=== PATIENT | female | born 1960 | race Caucasian/White ===

== ENCOUNTER → 2018-05-23 | Outpatient (CLI) | payer MEDICARE, OTHER ==
[~2018-05-23] MED LIST: ALPR1TAB7 PO; AML5T PO; ATEN-60 PO; AZAT50TA6 PO; BETH50TA PO; BUTACAP35 PO; ESOM40CA39 PO; FEXO-42 PO; FLUC200T50 PO; GABA600T PO; HYDR2TAB58 PO; LEVO175T33 PO; LISI-646 PO; METH-562 PO; MUPI2OIN2 EX; NITR50CA24 PO; OXY20CRT PO; OXY5T PO; PRE1T PO; PRE5T PO; PROBCAP4 OR; RIV20T PO
== END | disposition home or self-care (01) ==
LOC: Rad HDHVI 15:10
PROVIDERS: ATTEND Internal Medicine Cardiovascular Disease
DX: Z01.810 Encounter for preprocedural cardiovascular examination (principal); I08.1 Rheumatic disorders of both mitral and tricuspid valves; R07.89 Other chest pain
CPT/HCPCS: 93306

== ENCOUNTER → 2019-05-04 | Outpatient (CLI) | payer MEDICARE, OTHER ==
[~2019-05-04] VITALS: Ht 162.6 cm; Wt 47.6 kg
[~2019-05-04] MED LIST changes: +ADENOSINE 40 MG in GIVE UN-DILUTED 0 ML IV ONE; +ADENOSINE 90 MG/30 ML INJ IV ONE
== END | disposition home or self-care (01) ==
LOC: Rad HDHVI 13:14
PROVIDERS: ATTEND Internal Medicine Cardiovascular Disease
DX: I10 Essential (primary) hypertension (principal); F17.200 Nicotine dependence, unspecified, uncomplicated
CPT/HCPCS: 78452; 93005; 96374; 96375; A9500; J0153

== ENCOUNTER → 2019-11-22 | Outpatient (CLI) | payer MEDICARE, OTHER ==
[~2019-11-22] VITALS: Ht 30.5 cm; Wt 0.5 kg
[~2019-11-22] MED LIST changes: -ADENOSINE 40 MG in GIVE UN-DILUTED 0 ML IV ONE; -ADENOSINE 90 MG/30 ML INJ IV ONE; +KETOROLAC TROMETH 60MG/2ML VIAL IM ONE; +KETOROLAC TROMETH 60MG/2ML VIAL ONE
[2019-11-22 11:14] VITALS: BP 123/81
--- NOTE | 2019-11-22 11:14 | NUR ---
CHF PT ARRIVED TO THE CHF CLINIC FOR WEEKLY TORADOL IM PER MD ORDERS. A/OX4, AMBULATORY WITH WALKER. PT PAIN SCALE 9/10. PT HAS COLLAPSED SPINE AND IS AWAITING SPINE RECONSTRUCTION SURGERY AT [facility].
[2019-11-22 11:37] VITALS: BP 130/79
--- NOTE | 2019-11-22 11:37 | NUR ---
Discharge Instructions See e-MAR for any mediations given with this visit. Patient education given on disease process. Patient verbalized understanding. Previous labs reviewed. Patient discharged in stable condition with after care instructions and follow up appointment. WILL RETURN TO CLINIC ON 11/29/19 FOR PAIN EVAL AND TX. NOTE TORADOL IM ADMIN BY VOLODYMYR CHRISTIE IN [facility] LOT#[id number] EXP 07/19
== END | disposition home or self-care (01) ==
LOC: CHF HDHVI 11:14
PROVIDERS: ATTEND Internal Medicine Cardiovascular Disease
DX: G89.29 Other chronic pain (principal); M48.56XD Collapsed vertebra, not elsewhere classified, lumbar region, subsequent encounter for fracture with routine healing
CPT/HCPCS: 96372; G0463; J1885

== ENCOUNTER → 2019-11-29 | Outpatient (CLI) | payer MEDICARE, OTHER ==
[2019-11-29 14:05] VITALS: BP 128/75
[2019-11-29 14:33] VITALS: BP 144/62
== END | disposition home or self-care (01) ==
LOC: CHF HDHVI 13:59
PROVIDERS: ATTEND Internal Medicine Cardiovascular Disease
DX: R94.4 Abnormal results of kidney function studies (principal); G89.29 Other chronic pain
CPT/HCPCS: 36415; 82565; 84520; 96372; G0463; J1885

== ENCOUNTER → 2019-12-06 | Outpatient (CLI) | payer MEDICARE, OTHER ==
[2019-12-06 16:10] VITALS: BP 127/73
[2019-12-06 16:24] VITALS: BP 117/70
== END | disposition home or self-care (01) ==
LOC: CHF HDHVI 15:58
PROVIDERS: ATTEND Internal Medicine Cardiovascular Disease
DX: G89.29 Other chronic pain (principal); M48.56XD Collapsed vertebra, not elsewhere classified, lumbar region, subsequent encounter for fracture with routine healing
CPT/HCPCS: 96372; G0463; J1885

== ENCOUNTER → 2019-12-13 | Outpatient (CLI) | payer MEDICARE, OTHER ==
[~2019-12-13] VITALS: Ht 30.5 cm; Wt 0.5 kg
[2019-12-13 14:30] VITALS: BP 137/85
[2019-12-13 14:41] VITALS: BP 138/82
== END | disposition home or self-care (01) ==
LOC: CHF HDHVI 14:26
PROVIDERS: ATTEND Internal Medicine Cardiovascular Disease
DX: G89.29 Other chronic pain (principal); M48.56XD Collapsed vertebra, not elsewhere classified, lumbar region, subsequent encounter for fracture with routine healing
CPT/HCPCS: 96372; G0463; J1885

== ENCOUNTER → 2019-12-20 | Outpatient (CLI) | payer MEDICARE, OTHER ==
[2019-12-20 15:00] VITALS: BP 108/62
--- NOTE | 2019-12-20 15:00 | NUR ---
CLINIC PT ARRIVED TO THE CLINIC FOR WEEKLY EVAL AND TX. A/O X4, AMBULATORY WITH WALKER. PAIN 9/10 IN BACK DUE TO COLLAPSED PAIN WAITING ON BACK SURGERY.
[2019-12-20 15:19] VITALS: BP 105/68
--- NOTE | 2019-12-20 15:19 | NUR ---
Discharge Instructions See e-MAR for any mediations given with this visit. Patient education given on disease process. Patient verbalized understanding. Previous labs reviewed. Patient discharged in stable condition with after care instructions and follow up appointment. PT TO RETURN TO CLINIC IN 1 WEEK PER MD ORDERS. NOTE TORADOL IM R [place] ADMIN BY VOLODYMYR CHRISTIE LOT# [id number] EXP 07/19
== END | disposition home or self-care (01) ==
LOC: CHF HDHVI 14:58
PROVIDERS: ATTEND Internal Medicine Cardiovascular Disease
DX: G89.29 Other chronic pain (principal); M54.5 Low back pain
CPT/HCPCS: 96372; G0463; J1885

== ENCOUNTER → 2019-12-27 | Outpatient (CLI) | payer MEDICARE, OTHER ==
[2019-12-27 15:07] VITALS: BP 140/81
[2019-12-27 15:23] VITALS: BP 149/73
== END | disposition home or self-care (01) ==
LOC: CHF HDHVI 15:06
PROVIDERS: ATTEND Internal Medicine Cardiovascular Disease
DX: M54.5 Low back pain (principal); G89.29 Other chronic pain; M48.56XD Collapsed vertebra, not elsewhere classified, lumbar region, subsequent encounter for fracture with routine healing
CPT/HCPCS: 96372; G0463; J1885

== ENCOUNTER → 2020-01-03 | Outpatient (CLI) | payer MEDICARE, OTHER ==
[2020-01-03 14:50] VITALS: BP 144/78
--- NOTE | 2020-01-03 14:50 | NUR ---
CLINIC PT ARRIVED TO THE CHF CLINIC FOR WEEKLY EVAL AND TX PER MD ORDER. A/O X4, AMBULATORY WITH THE USE OF HOME WALKER. PT BACK PAIN 03/07 NON RADIATING. PT STILL AWAITING SPINE RECONSTRUCTION SURGERY BUT OF NOW NO DATE
[2020-01-03 15:01] VITALS: BP 132/85
--- NOTE | 2020-01-03 15:01 | NUR ---
Discharge Instructions See e-MAR for any mediations given with this visit. Patient education given on disease process. Patient verbalized understanding. Previous labs reviewed. Patient discharged in stable condition with after care instructions and follow up appointment. IN 1 WEEK NOTE TORADOL IM ADMIN BY VOLODYMYR CHRISTIE LOT# [id number] EXP 01/15 Glory DAHL
== END | disposition home or self-care (01) ==
LOC: CHF HDHVI 15:01
PROVIDERS: ATTEND Internal Medicine Cardiovascular Disease
DX: R53.83 Other fatigue (principal); G89.29 Other chronic pain
CPT/HCPCS: 96372; G0463; J1885

== ENCOUNTER → 2020-01-10 | Outpatient (CLI) | payer MEDICARE, OTHER ==
[2020-01-10 14:25] VITALS: BP 144/87
[2020-01-10 14:34] VITALS: BP 149/73
== END | disposition home or self-care (01) ==
LOC: CHF HDHVI 14:26
PROVIDERS: ATTEND Internal Medicine Cardiovascular Disease
DX: G89.29 Other chronic pain (principal); M54.5 Low back pain
CPT/HCPCS: 96372; G0463; J1885

== ENCOUNTER → 2020-01-18 | Outpatient (CLI) | payer MEDICARE, OTHER ==
[2020-01-18 14:25] VITALS: BP 123/69
[2020-01-18 14:37] VITALS: BP 118/72
== END | disposition home or self-care (01) ==
LOC: CHF HDHVI 14:20
PROVIDERS: ATTEND Internal Medicine Cardiovascular Disease
DX: G89.29 Other chronic pain (principal); M48.56XD Collapsed vertebra, not elsewhere classified, lumbar region, subsequent encounter for fracture with routine healing; M54.5 Low back pain
CPT/HCPCS: 96372; G0463; J1885

== ENCOUNTER → 2020-01-24 | Outpatient (CLI) | payer MEDICARE, OTHER ==
[2020-01-24 15:30] VITALS: BP 155/89
[2020-01-24 15:36] VITALS: BP 155/89
--- NOTE | 2020-01-24 15:36 | NUR ---
CHF CLINIC Discharge Instructions See e-MAR for any mediations given with this visit. Patient education given on disease process. Patient verbalized understanding. Previous labs reviewed. Patient discharged in stable condition with after care instructions and follow up appointment. NOTE TORADOL IM L GLUTE ADMIN BY BI CHRISTIE.
== END | disposition home or self-care (01) ==
LOC: CHF HDHVI 15:36
PROVIDERS: ATTEND Internal Medicine Cardiovascular Disease
DX: M48.56XD Collapsed vertebra, not elsewhere classified, lumbar region, subsequent encounter for fracture with routine healing (principal); G89.29 Other chronic pain; M54.5 Low back pain; R53.83 Other fatigue
CPT/HCPCS: 96372; G0463; J1885

== ENCOUNTER → 2020-01-31 | Outpatient (CLI) | payer MEDICARE, OTHER ==
[~2020-01-31] VITALS: Ht 30.5 cm; Wt 0.5 kg
[2020-01-31 14:53] VITALS: BP 123/72
--- NOTE | 2020-01-31 14:53 | NUR ---
CLINIC PT ARRIVED TO THE CHF CLINIC FOR WEEKLY EVAL AND TX. PER MD ORDERS. A/OX4, AMBULATORY WITH WALKER. C/O PAIN 03/07. BREATHING IS EVEN AND UNLABORED.
[2020-01-31 15:27] VITALS: BP 107/70
--- NOTE | 2020-01-31 15:27 | NUR ---
Discharge Instructions See e-MAR for any mediations given with this visit. Patient education given on disease process. Patient verbalized understanding. Previous labs reviewed. Patient discharged in stable condition with after care instructions and follow up appointment 1 WEEK. NOTE TORADOL IM ADMIN BY VOLODYMYR DAHL
== END | disposition home or self-care (01) ==
LOC: CHF HDHVI 15:04
PROVIDERS: ATTEND Internal Medicine Cardiovascular Disease
DX: G89.29 Other chronic pain (principal); M48.56XD Collapsed vertebra, not elsewhere classified, lumbar region, subsequent encounter for fracture with routine healing; M54.5 Low back pain
CPT/HCPCS: 96372; G0463; J1885

== ENCOUNTER → 2020-02-07 | Outpatient (CLI) | payer MEDICARE, OTHER ==
[~2020-02-07] VITALS: Ht 30.5 cm; Wt 0.5 kg
[2020-02-07 14:33] VITALS: BP 142/85
[2020-02-07 14:44] VITALS: BP 133/80
== END | disposition home or self-care (01) ==
LOC: CHF HDHVI 14:36
PROVIDERS: ATTEND Internal Medicine Cardiovascular Disease
DX: G89.29 Other chronic pain (principal); M54.9 Dorsalgia, unspecified
CPT/HCPCS: 96372; G0463; J1885

== ENCOUNTER → 2020-02-14 | Outpatient (CLI) | payer MEDICARE, OTHER ==
[2020-02-14 15:20] VITALS: BP 154/84
--- NOTE | 2020-02-14 15:20 | NUR ---
CLINIC PT ARRIVED TO THE CHF CLINIC FOR WEEKLY PAIN EVAL AND TX. A/OX4, AMBULATORY WITH WALKER. PT HAS A COLLAPSED SPINE AND IS AWAITING SURGERY. PAIN 9/10. BREATHING IS EVEN AND UNLABORED
[2020-02-14 15:29] VITALS: BP 141/83
--- NOTE | 2020-02-14 15:29 | NUR ---
Discharge Instructions See e-MAR for any mediations given with this visit. Patient education given on disease process. Patient verbalized understanding. Previous labs reviewed. Patient discharged in stable condition with after care instructions and follow up appointment IN 1 WEEK. NOTE TORADOL IM ADMIN BY VOLODYMYR DAHL LOT# [id number] EXP 07/19
== END | disposition home or self-care (01) ==
LOC: CHF HDHVI 15:22
PROVIDERS: ATTEND Internal Medicine Cardiovascular Disease
DX: M54.5 Low back pain (principal); G89.29 Other chronic pain; M48.56XD Collapsed vertebra, not elsewhere classified, lumbar region, subsequent encounter for fracture with routine healing
CPT/HCPCS: 96372; G0463; J1885

== ENCOUNTER → 2020-02-28 | Outpatient (CLI) | payer MEDICARE, OTHER ==
[~2020-02-28] VITALS: Ht 30.5 cm; Wt 0.5 kg
[2020-02-28 14:59] VITALS: BP 132/85
[2020-02-28 15:15] VITALS: BP 131/75
== END | disposition home or self-care (01) ==
LOC: CHF HDHVI 15:05
PROVIDERS: ATTEND Internal Medicine Cardiovascular Disease
DX: G89.29 Other chronic pain (principal); M48.56XD Collapsed vertebra, not elsewhere classified, lumbar region, subsequent encounter for fracture with routine healing; M54.5 Low back pain
CPT/HCPCS: 96372; G0463; J1885

== ENCOUNTER → 2020-03-06 | Outpatient (CLI) | payer MEDICARE, OTHER ==
[2020-03-06 13:56] VITALS: BP 135/67
--- NOTE | 2020-03-06 13:56 | NUR ---
CLINIC PT ARRIVED TO THE CHF CLINIC FOR SCHEDULED WEEKLY PAIN EVAL. A/OX4, AMBULATORY WITH WALKER. PT C/O PAIN 03/07. BREATHING IS EVEN AND UNLABORED.
[2020-03-06 14:10] VITALS: BP 119/79
--- NOTE | 2020-03-06 14:10 | NUR ---
Discharge Instructions See e-MAR for any mediations given with this visit. Patient education given on disease process. Patient verbalized understanding. Previous labs reviewed. Patient discharged in stable condition with after care instructions and follow up appointment IN 1 WEEK. NOTE TORADOL IM ADMIN BY VOLODYMYR DAHL LOT#[id number] EXP 12/17
== END | disposition home or self-care (01) ==
LOC: CHF HDHVI 14:06
PROVIDERS: ATTEND Internal Medicine Cardiovascular Disease
DX: M48.56XD Collapsed vertebra, not elsewhere classified, lumbar region, subsequent encounter for fracture with routine healing (principal); M54.5 Low back pain; G89.29 Other chronic pain; R53.83 Other fatigue
CPT/HCPCS: 96372; G0463; J1885

== ENCOUNTER → 2020-03-21 | Outpatient (CLI) | payer MEDICARE, OTHER ==
[~2020-03-21] VITALS: Ht 30.5 cm; Wt 0.5 kg
[2020-03-21 13:46] VITALS: BP 121/74
--- NOTE | 2020-03-21 13:46 | NUR ---
CLINIC PT ARRIVED TO THE CHF CLINIC FOR WEEKLY PAIN EVAL AND TX. A/OX4, AMBULATORY WITH WALKER. PAIN 9/, BREATHING IS EVEN AND UNLABORED
[2020-03-21 13:52] VITALS: BP 129/77
--- NOTE | 2020-03-21 13:52 | NUR ---
Discharge Instructions See e-MAR for any mediations given with this visit. Patient education given on disease process. Patient verbalized understanding. Previous labs reviewed. Patient discharged in stable condition with after care instructions and follow up appointment IN 1 WEEK. NOTE TORADOL IM ADMIN BY VOLODYMYR DAHL LOT#[id number] EXP 12/17
== END | disposition home or self-care (01) ==
LOC: CHF HDHVI 13:47
PROVIDERS: ATTEND Internal Medicine Cardiovascular Disease
DX: G89.29 Other chronic pain (principal); M48.56XD Collapsed vertebra, not elsewhere classified, lumbar region, subsequent encounter for fracture with routine healing; M54.5 Low back pain
CPT/HCPCS: 96372; G0463; J1885

== ENCOUNTER → 2020-03-28 | Outpatient (CLI) | payer MEDICARE, OTHER ==
[2020-03-28 13:30] VITALS: BP 130/82
--- NOTE | 2020-03-28 13:30 | NUR ---
CLINIC PT ARRIVED TO THE CHF CLINIC FOR WEEKLY SCHEDULED PAIN EVAL AND TX. A/OX4, AMBULATORY WITH A WALKER. PAIN 03/07. PT STATED THERE IS A POSSIBILITY OF SURGERY TO REPAIR SPINE ON MAY 07, 2020. BREATHING IS EVEN AND UNLABORED.
[2020-03-28 13:45] VITALS: BP 130/78
--- NOTE | 2020-03-28 13:45 | NUR ---
Discharge Instructions See e-MAR for any mediations given with this visit. Patient education given on disease process. Patient verbalized understanding. Previous labs reviewed. Patient discharged in stable condition with after care instructions and follow up appointment IN 1 WEEK. NOTE TORADOL IM ADMIN BY VOLODYMYR DAHL LOT#[id number] EXP 01/15
== END | disposition home or self-care (01) ==
LOC: CHF HDHVI 13:39
PROVIDERS: ATTEND Internal Medicine Cardiovascular Disease
DX: G89.29 Other chronic pain (principal); M48.56XD Collapsed vertebra, not elsewhere classified, lumbar region, subsequent encounter for fracture with routine healing; M54.5 Low back pain
CPT/HCPCS: 96372; G0463; J1885

== ENCOUNTER → 2020-04-04 | Outpatient (CLI) | payer MEDICARE, OTHER ==
[2020-04-04 13:50] VITALS: BP 114/77
--- NOTE | 2020-04-04 13:50 | NUR ---
CLINIC PT ARRIVED TO THE CHF CLINIC FOR WEEKLY PAIN EVAL. A/OX4, AMBULATORY WITH WALKER, BREATHING IS EVEN AND UNLABORED. PAIN 02/04.
[2020-04-04 14:02] VITALS: BP 129/78
--- NOTE | 2020-04-04 14:02 | NUR ---
Discharge Instructions See e-MAR for any mediations given with this visit. Patient education given on disease process. Patient verbalized understanding. Previous labs reviewed. Patient discharged in stable condition with after care instructions and follow up appointment ON WED. NOTE TORADOL IM ADMIN BY DANNI DAHL LOT#[id number] EXP 12/17
== END | disposition home or self-care (01) ==
LOC: CHF HDHVI 13:51
PROVIDERS: ATTEND Internal Medicine Cardiovascular Disease
DX: M48.56XD Collapsed vertebra, not elsewhere classified, lumbar region, subsequent encounter for fracture with routine healing (principal); G89.29 Other chronic pain; R53.83 Other fatigue
CPT/HCPCS: 96372; G0463; J1885

== ENCOUNTER → 2020-04-10 | Outpatient (CLI) | payer MEDICARE, OTHER ==
[2020-04-10 15:01] VITALS: BP 163/92
--- NOTE | 2020-04-10 15:01 | NUR ---
PT ARRIVED TO CHF CLINIC PT ARRIVED TO CHF CLINIC FOR CHRONIC PAIN EVAL AND TREATMENT. PATIENT IS ALERT AND AWAKE WITH EVEN AND UNLABORED RESPIRATIONS. NO S/S OF SOB/DISTRESS NOTED. PT C/O PAIN 03/07 IN BACK. WILL CARRY OUT MD ORDERS.
[2020-04-10 15:13] VITALS: BP 145/90
--- NOTE | 2020-04-10 15:13 | NUR ---
CHF CLINIC Discharge Instructions See e-MAR for any mediations given with this visit. Patient education given on disease process. Patient verbalized understanding. Previous labs reviewed. Patient discharged in stable condition with after care instructions and follow up appointment. NOTES TORADOL IM RIGHT GLUT ADMIN BY DANNI KHANNA
== END | disposition home or self-care (01) ==
LOC: CHF HDHVI 15:26
PROVIDERS: ATTEND Internal Medicine Cardiovascular Disease
DX: G89.29 Other chronic pain (principal); M48.56XD Collapsed vertebra, not elsewhere classified, lumbar region, subsequent encounter for fracture with routine healing; R53.83 Other fatigue; M54.5 Low back pain
CPT/HCPCS: 96372; G0463; J1885

== ENCOUNTER → 2020-04-18 | Outpatient (CLI) | payer MEDICARE, OTHER ==
[~2020-04-18] VITALS: Ht 30.5 cm; Wt 0.5 kg
[2020-04-18 15:13] VITALS: BP 139/84
--- NOTE | 2020-04-18 15:13 | NUR ---
CLINIC PT ARRIVED TO THE CHF CLINIC FOR SCHEDULED WEEKLY PAIN EVAL AND TX, A/OX4, AMBULATORY WITH WALKER, PAIN 03/07. BREATHING IS EVEN AND UNLABORED.
[2020-04-18 15:36] VITALS: BP 134/90
--- NOTE | 2020-04-18 15:36 | NUR ---
Discharge Instructions See e-MAR for any mediations given with this visit. Patient education given on disease process. Patient verbalized understanding. Previous labs reviewed. Patient discharged in stable condition with after care instructions and follow up appointment WED @ 230 NOTE TORADOL IM ADMIN BY VOLODYMYR DAHL LOT#[id number] EXP 12/17
== END | disposition home or self-care (01) ==
LOC: CHF HDHVI 15:15
PROVIDERS: ATTEND Internal Medicine Cardiovascular Disease
DX: G89.29 Other chronic pain (principal); S32.009D Unspecified fracture of unspecified lumbar vertebra, subsequent encounter for fracture with routine healing; M54.5 Low back pain
CPT/HCPCS: 96372; G0463; J1885

== ENCOUNTER → 2020-04-23 | Outpatient (CLI) | payer MEDICARE, OTHER ==
[~2020-04-23] VITALS: Ht 30.5 cm; Wt 0.5 kg
[2020-04-23 14:50] VITALS: BP 153/95
--- NOTE | 2020-04-23 14:50 | NUR ---
CLINIC PT ARRIVED TO THE CHF CLINIC FOR PAIN EVAL AND TX. A/OX4, AMBULATORY WITH WALKER, BREATHING IS EVEN AND UNLABORED. PAIN 03/07.
[2020-04-23 15:05] VITALS: BP 135/83
--- NOTE | 2020-04-23 15:05 | NUR ---
Discharge Instructions See e-MAR for any mediations given with this visit. Patient education given on disease process. Patient verbalized understanding. Previous labs reviewed. Patient discharged in stable condition with after care instructions and follow up appointment IN 1 WEEK. NOTE TORADOL IM ADMIN BY VOLODYMYR DAHL LOT#[id number] EXP 12/17
== END | disposition home or self-care (01) ==
LOC: CHF HDHVI 14:55
PROVIDERS: ATTEND Internal Medicine Cardiovascular Disease
DX: G89.29 Other chronic pain (principal); M48.56XD Collapsed vertebra, not elsewhere classified, lumbar region, subsequent encounter for fracture with routine healing; M54.5 Low back pain
CPT/HCPCS: 96372; G0463; J1885

== ENCOUNTER → 2020-05-01 | Outpatient (CLI) | payer MEDICARE, OTHER ==
[~2020-05-01] VITALS: Ht 154.9 cm; Wt 46.7 kg
[2020-05-01 15:20] VITALS: BP 151/90
--- NOTE | 2020-05-01 15:20 | NUR ---
CLINIC PT ARRIVED TO THE CLINIC FOR SCHEDULED PAIN EVAL AND TX. A/OX4, AMBULATORY WITH WALKER, BREATHING IS EVEN AND UNLABORED. PAIN REPORTED 03/07.
[2020-05-01 15:28] VITALS: BP 147/91
--- NOTE | 2020-05-01 15:28 | NUR ---
Discharge Instructions See e-MAR for any mediations given with this visit. Patient education given on disease process. Patient verbalized understanding. Previous labs reviewed. Patient discharged in stable condition with after care instructions and follow up appointment IN 1 WEEK. NOTE TORADOL IM ADMIN BY VOLODYMYR DAHL LOT#[id number] EXP 12/17
== END | disposition home or self-care (01) ==
LOC: CHF HDHVI 15:25
PROVIDERS: ATTEND Internal Medicine Cardiovascular Disease
DX: G89.29 Other chronic pain (principal); M48.56XD Collapsed vertebra, not elsewhere classified, lumbar region, subsequent encounter for fracture with routine healing; M54.5 Low back pain; R53.83 Other fatigue
CPT/HCPCS: 96372; G0463; J1885

== ENCOUNTER → 2020-05-07 | Outpatient (CLI) | payer MEDICARE, OTHER ==
[2020-05-07 14:49] VITALS: BP 127/63
[2020-05-07 14:59] VITALS: BP 128/62
== END | disposition home or self-care (01) ==
LOC: CHF HDHVI 15:05
PROVIDERS: ATTEND Internal Medicine Cardiovascular Disease
DX: G89.29 Other chronic pain (principal); M48.56XD Collapsed vertebra, not elsewhere classified, lumbar region, subsequent encounter for fracture with routine healing
CPT/HCPCS: 96372; G0463; J1885

== ENCOUNTER → 2020-05-21 | Outpatient (CLI) | payer MEDICARE, OTHER ==
[2020-05-21 15:31] VITALS: BP 134/68
--- NOTE | 2020-05-21 15:31 | NUR ---
CLINIC PT ARRIVED TO THE CLINIC FOR SCHEDULED PAIN EVAL AND TX, A/OX4, AMBULATORY WITH WALKER, BREATHING IS EVEN AND UNLABORED. PT C/O GENERALIZED PAIN 03/07
[2020-05-21 15:47] VITALS: BP 102/65
--- NOTE | 2020-05-21 15:47 | NUR ---
Discharge Instructions See e-MAR for any mediations given with this visit. Patient education given on disease process. Patient verbalized understanding. Previous labs reviewed. Patient discharged in stable condition with after care instructions and follow up appointment IN 1 WEEK. NOTE TORADOL IM ADMIN BY VOLODYMYR DAHL LOT#[id number] EXP 01/15
== END | disposition home or self-care (01) ==
LOC: CHF HDHVI 15:40
PROVIDERS: ATTEND Internal Medicine Cardiovascular Disease
DX: G89.29 Other chronic pain (principal); M48.56XD Collapsed vertebra, not elsewhere classified, lumbar region, subsequent encounter for fracture with routine healing; M54.5 Low back pain; R53.83 Other fatigue
CPT/HCPCS: 96372; G0463; J1885

== ENCOUNTER → 2020-06-05 | Outpatient (CLI) | payer MEDICARE, OTHER ==
[~2020-06-05] VITALS: Ht 30.5 cm; Wt 0.5 kg
[2020-06-05 15:21] VITALS: BP 153/76
--- NOTE | 2020-06-05 15:21 | NUR ---
CLINIC PT ARRIVED TO THE CHF CLINIC FOR SCHEDULED PAIN EVAL AND TX, A/OX4, AMBULATORY WITH WALKER, BREATHING IS EVEN AND UNLABORED. PT C/O PAIN 03/07
[2020-06-05 15:48] VITALS: BP 153/78
--- NOTE | 2020-06-05 15:48 | NUR ---
Discharge Instructions See e-MAR for any mediations given with this visit. Patient education given on disease process. Patient verbalized understanding. Previous labs reviewed. Patient discharged in stable condition with after care instructions and follow up appointment IN 1 WEEK. NOTE TORADOL IM ADMIN BY VOLODYMYR DAHL LOT# [id number] EXP 02/16
== END | disposition home or self-care (01) ==
LOC: CHF HDHVI 15:36
PROVIDERS: ATTEND Internal Medicine Cardiovascular Disease
DX: M48.56XD Collapsed vertebra, not elsewhere classified, lumbar region, subsequent encounter for fracture with routine healing (principal); G89.29 Other chronic pain; M54.5 Low back pain; R53.83 Other fatigue
CPT/HCPCS: 96372; G0463; J1885

== ENCOUNTER → 2020-06-12 | Outpatient (CLI) | payer MEDICARE, OTHER ==
[2020-06-12 15:27] VITALS: BP 144/84
[2020-06-12 15:43] VITALS: BP 146/86
== END | disposition home or self-care (01) ==
LOC: CHF HDHVI 15:37
PROVIDERS: ATTEND Internal Medicine Cardiovascular Disease
DX: G89.29 Other chronic pain (principal); M54.5 Low back pain; R53.83 Other fatigue; M48.56XD Collapsed vertebra, not elsewhere classified, lumbar region, subsequent encounter for fracture with routine healing
CPT/HCPCS: 96372; G0463; J1885

== ENCOUNTER → 2020-06-25 | Outpatient (CLI) | payer MEDICARE, OTHER ==
[2020-06-25 15:15] VITALS: BP 105/71
[2020-06-25 15:50] VITALS: BP 120/73
== END | disposition home or self-care (01) ==
LOC: CHF HDHVI 15:34
PROVIDERS: ATTEND Internal Medicine Cardiovascular Disease
DX: G89.29 Other chronic pain (principal); M48.56XD Collapsed vertebra, not elsewhere classified, lumbar region, subsequent encounter for fracture with routine healing; R53.83 Other fatigue; M54.5 Low back pain
CPT/HCPCS: 96372; G0463; J1885

== ENCOUNTER → 2020-07-03 | Outpatient (CLI) | payer MEDICARE, OTHER ==
[~2020-07-03] VITALS: Ht 30.5 cm; Wt 0.5 kg
[~2020-07-03] MED LIST changes: +LEVO175T2 PO; -LEVO175T33 PO; -LISI-646 PO; +LISI20TA28 PO
[2020-07-03 15:55] VITALS: BP 128/59
[2020-07-03 16:05] VITALS: BP 128/72
== END | disposition home or self-care (01) ==
LOC: CHF HDHVI 15:57
PROVIDERS: ATTEND Internal Medicine Cardiovascular Disease
DX: G89.29 Other chronic pain (principal); M48.56XD Collapsed vertebra, not elsewhere classified, lumbar region, subsequent encounter for fracture with routine healing; M54.5 Low back pain; R53.83 Other fatigue
CPT/HCPCS: 96372; G0463; J1885

== ENCOUNTER → 2020-07-10 | Outpatient (CLI) | payer MEDICARE, OTHER ==
[~2020-07-10] MED LIST changes: -LEVO175T2 PO; +LEVO175T33 PO; +LISI-646 PO; -LISI20TA28 PO
[2020-07-10 14:38] VITALS: BP 122/89
[2020-07-10 14:49] VITALS: BP 124/93
== END | disposition home or self-care (01) ==
LOC: CHF HDHVI 14:41
PROVIDERS: ATTEND Internal Medicine Cardiovascular Disease
DX: G89.29 Other chronic pain (principal); R53.83 Other fatigue; M48.56XD Collapsed vertebra, not elsewhere classified, lumbar region, subsequent encounter for fracture with routine healing; M54.5 Low back pain
CPT/HCPCS: 96372; G0463; J1885

== ENCOUNTER → 2020-07-17 | Outpatient (CLI) | payer MEDICARE, OTHER ==
[~2020-07-17] VITALS: Ht 30.5 cm; Wt 0.5 kg
[~2020-07-17] MED LIST changes: +LEVO175T2 PO; -LEVO175T33 PO
[2020-07-17 15:32] VITALS: BP 149/83
[2020-07-17 15:57] VITALS: BP 133/82
== END | disposition home or self-care (01) ==
LOC: CHF HDHVI 15:27
PROVIDERS: ATTEND Internal Medicine Cardiovascular Disease
DX: M48.56XD Collapsed vertebra, not elsewhere classified, lumbar region, subsequent encounter for fracture with routine healing (principal); G89.29 Other chronic pain; R53.83 Other fatigue
CPT/HCPCS: 96372; G0463; J1885

== ENCOUNTER → 2020-07-24 | Outpatient (CLI) | payer MEDICARE, OTHER ==
[2020-07-24 15:03] VITALS: BP 141/93
[2020-07-24 15:19] VITALS: BP 153/79
== END | disposition home or self-care (01) ==
LOC: CHF HDHVI 15:27
PROVIDERS: ATTEND Internal Medicine Cardiovascular Disease
DX: M48.56XD Collapsed vertebra, not elsewhere classified, lumbar region, subsequent encounter for fracture with routine healing (principal); G89.29 Other chronic pain; R53.83 Other fatigue; M54.5 Low back pain
CPT/HCPCS: 96372; G0463; J1885

== ENCOUNTER → 2020-08-01 | Outpatient (CLI) | payer MEDICARE, OTHER ==
[2020-08-01 15:48] VITALS: BP 150/87
[2020-08-01 16:15] VITALS: BP 153/88
== END | disposition home or self-care (01) ==
LOC: CHF HDHVI 15:57
PROVIDERS: ATTEND Internal Medicine Cardiovascular Disease
DX: G89.29 Other chronic pain (principal); M54.5 Low back pain; R53.83 Other fatigue; M48.56XD Collapsed vertebra, not elsewhere classified, lumbar region, subsequent encounter for fracture with routine healing
CPT/HCPCS: 96372; G0463; J1885

== ENCOUNTER → 2020-08-08 | Outpatient (CLI) | payer MEDICARE, OTHER ==
[2020-08-08 14:48] VITALS: BP 148/77
[2020-08-08 15:00] VITALS: BP 146/72
== END | disposition home or self-care (01) ==
LOC: CHF HDHVI 14:54
PROVIDERS: ATTEND Internal Medicine Cardiovascular Disease
DX: G89.29 Other chronic pain (principal); M48.56XD Collapsed vertebra, not elsewhere classified, lumbar region, subsequent encounter for fracture with routine healing
CPT/HCPCS: 96372; G0463; J1885

== ENCOUNTER → 2020-08-15 | Outpatient (CLI) | payer MEDICARE, OTHER ==
[2020-08-15 15:14] VITALS: BP 145/87
[2020-08-15 15:30] VITALS: BP 153/86
== END | disposition home or self-care (01) ==
LOC: CHF HDHVI 15:27
PROVIDERS: ATTEND Internal Medicine Cardiovascular Disease
DX: G89.29 Other chronic pain (principal); M48.56XD Collapsed vertebra, not elsewhere classified, lumbar region, subsequent encounter for fracture with routine healing
CPT/HCPCS: 96372; G0463; J1885

== ENCOUNTER → 2020-08-29 | Outpatient (CLI) | payer MEDICARE, OTHER ==
[~2020-08-29] VITALS: Ht 30.5 cm; Wt 0.5 kg
[2020-08-29 15:18] VITALS: BP 135/87
[2020-08-29 15:33] VITALS: BP 141/87
== END | disposition home or self-care (01) ==
LOC: CHF HDHVI 15:24
PROVIDERS: ATTEND Internal Medicine Cardiovascular Disease
DX: M48.56XD Collapsed vertebra, not elsewhere classified, lumbar region, subsequent encounter for fracture with routine healing (principal); G89.29 Other chronic pain; M54.5 Low back pain; I50.9 Heart failure, unspecified; R53.83 Other fatigue
CPT/HCPCS: 96372; G0463; J1885

== ENCOUNTER → 2020-09-12 | Outpatient (CLI) | payer MEDICARE, OTHER ==
[2020-09-12 15:29] VITALS: BP 153/94
[2020-09-12 16:01] VITALS: BP 150/93
== END | disposition home or self-care (01) ==
LOC: CHF HDHVI 15:28
PROVIDERS: ATTEND Internal Medicine Cardiovascular Disease
DX: G89.29 Other chronic pain (principal); I50.9 Heart failure, unspecified; M48.56XD Collapsed vertebra, not elsewhere classified, lumbar region, subsequent encounter for fracture with routine healing
CPT/HCPCS: 96372; G0463; J1885

== ENCOUNTER → 2020-09-26 | Outpatient (CLI) | payer MEDICARE, OTHER ==
[2020-09-26 15:06] VITALS: BP 160/91
[2020-09-26 15:14] VITALS: BP 157/90
== END | disposition home or self-care (01) ==
LOC: CHF HDHVI 15:06
PROVIDERS: ATTEND Internal Medicine Cardiovascular Disease
DX: M48.56XD Collapsed vertebra, not elsewhere classified, lumbar region, subsequent encounter for fracture with routine healing (principal); G89.29 Other chronic pain; M54.5 Low back pain; I50.9 Heart failure, unspecified; M54.6 Pain in thoracic spine; R53.83 Other fatigue
CPT/HCPCS: 96372; G0463; J1885

== ENCOUNTER → 2020-10-03 | Outpatient (CLI) | payer MEDICARE, OTHER ==
[~2020-10-03] VITALS: Ht 30.5 cm; Wt 0.5 kg
[2020-10-03 14:34] VITALS: BP 124/80
[2020-10-03 14:48] VITALS: BP 114/75
== END | disposition home or self-care (01) ==
LOC: CHF HDHVI 14:31
PROVIDERS: ATTEND Internal Medicine Cardiovascular Disease
DX: M48.56XD Collapsed vertebra, not elsewhere classified, lumbar region, subsequent encounter for fracture with routine healing (principal); G89.29 Other chronic pain; M54.5 Low back pain; R53.83 Other fatigue; I50.9 Heart failure, unspecified
CPT/HCPCS: 96372; G0463; J1885

== ENCOUNTER → 2020-10-10 | Outpatient (CLI) | payer MEDICARE, OTHER ==
[2020-10-10 15:20] VITALS: BP 145/90
[2020-10-10 15:38] VITALS: BP 130/85
== END | disposition home or self-care (01) ==
LOC: CHF HDHVI 15:31
PROVIDERS: ATTEND Internal Medicine Cardiovascular Disease
DX: G89.29 Other chronic pain (principal); M48.56XD Collapsed vertebra, not elsewhere classified, lumbar region, subsequent encounter for fracture with routine healing; I50.9 Heart failure, unspecified
CPT/HCPCS: 96372; G0463; J1885

== ENCOUNTER → 2020-10-17 | Outpatient (CLI) | payer MEDICARE, OTHER ==
[~2020-10-17] VITALS: Ht 30.5 cm; Wt 0.5 kg
[2020-10-17 15:07] VITALS: BP 143/88
[2020-10-17 15:18] VITALS: BP 136/89
== END | disposition home or self-care (01) ==
LOC: CHF HDHVI 15:06
PROVIDERS: ATTEND Internal Medicine Cardiovascular Disease
DX: G89.29 Other chronic pain (principal); M48.56XD Collapsed vertebra, not elsewhere classified, lumbar region, subsequent encounter for fracture with routine healing; I50.9 Heart failure, unspecified
CPT/HCPCS: 96372; G0463; J1885

== ENCOUNTER → 2020-10-24 | Outpatient (CLI) | payer MEDICARE, OTHER ==
[~2020-10-24] MED LIST changes: -LISI-646 PO; +LISI20TA28 PO
[2020-10-24 13:42] VITALS: BP 123/70
[2020-10-24 13:51] VITALS: BP 106/73
== END | disposition home or self-care (01) ==
LOC: CHF HDHVI 13:40
PROVIDERS: ATTEND Internal Medicine Cardiovascular Disease
DX: G89.29 Other chronic pain (principal); M48.56XD Collapsed vertebra, not elsewhere classified, lumbar region, subsequent encounter for fracture with routine healing; I50.9 Heart failure, unspecified; R53.83 Other fatigue
CPT/HCPCS: 96372; G0463; J1885

== ENCOUNTER → 2020-10-31 | Outpatient (CLI) | payer MEDICARE, OTHER ==
[2020-10-31 12:56] VITALS: BP 132/87
[2020-10-31 13:04] VITALS: BP 133/88
== END | disposition home or self-care (01) ==
LOC: CHF HDHVI 13:03
PROVIDERS: ATTEND Internal Medicine Cardiovascular Disease
DX: G89.29 Other chronic pain (principal); M48.56XD Collapsed vertebra, not elsewhere classified, lumbar region, subsequent encounter for fracture with routine healing; I50.9 Heart failure, unspecified; R53.83 Other fatigue
CPT/HCPCS: 96372; G0463; J1885

== ENCOUNTER → 2020-11-07 | Outpatient (CLI) | payer MEDICARE, OTHER ==
[~2020-11-07] VITALS: Ht 30.5 cm; Wt 0.5 kg
[2020-11-07 13:53] VITALS: BP 161/88
[2020-11-07 14:06] VITALS: BP 151/76
== END | disposition home or self-care (01) ==
LOC: CHF HDHVI 13:54
PROVIDERS: ATTEND Internal Medicine Cardiovascular Disease
DX: M48.56XD Collapsed vertebra, not elsewhere classified, lumbar region, subsequent encounter for fracture with routine healing (principal); G89.29 Other chronic pain; R53.83 Other fatigue; I50.9 Heart failure, unspecified
CPT/HCPCS: 96372; G0463; J1885

== ENCOUNTER → 2020-11-15 | Outpatient (CLI) | payer MEDICARE, OTHER ==
[2020-11-15 12:33] VITALS: BP 164/90
[2020-11-15 12:45] VITALS: BP 170/96
== END | disposition home or self-care (01) ==
LOC: CHF HDHVI 12:34
PROVIDERS: ATTEND Internal Medicine Cardiovascular Disease
DX: M48.56XD Collapsed vertebra, not elsewhere classified, lumbar region, subsequent encounter for fracture with routine healing (principal); G89.29 Other chronic pain; R53.83 Other fatigue; I50.9 Heart failure, unspecified
CPT/HCPCS: 96372; G0463; J1885

== ENCOUNTER → 2020-11-28 | Outpatient (CLI) | payer MEDICARE, OTHER ==
[2020-11-28 14:14] VITALS: BP 156/83
[2020-11-28 14:22] VITALS: BP 148/87
== END | disposition home or self-care (01) ==
LOC: CHF HDHVI 14:11
PROVIDERS: ATTEND Internal Medicine Cardiovascular Disease
DX: M48.56XD Collapsed vertebra, not elsewhere classified, lumbar region, subsequent encounter for fracture with routine healing (principal); G89.29 Other chronic pain; I50.9 Heart failure, unspecified; R53.83 Other fatigue
CPT/HCPCS: 96372; G0463; J1885

== ENCOUNTER → 2020-12-26 | Outpatient (CLI) | payer MEDICARE, OTHER ==
[~2020-12-26] VITALS: Ht 30.5 cm; Wt 0.5 kg
[2020-12-26 13:50] VITALS: BP 165/84
[2020-12-26 13:57] VITALS: BP 136/91
== END | disposition home or self-care (01) ==
LOC: CHF HDHVI 13:49
PROVIDERS: ATTEND Internal Medicine Cardiovascular Disease
DX: G89.29 Other chronic pain (principal); M48.56XD Collapsed vertebra, not elsewhere classified, lumbar region, subsequent encounter for fracture with routine healing; I50.9 Heart failure, unspecified; R53.83 Other fatigue
CPT/HCPCS: 96372; G0463; J1885

== ENCOUNTER → 2021-01-02 | Outpatient (CLI) | payer MEDICARE, OTHER ==
[2021-01-02 15:03] VITALS: BP 145/91
[2021-01-02 15:14] VITALS: BP 139/81
== END | disposition home or self-care (01) ==
LOC: CHF HDHVI 15:20
PROVIDERS: ATTEND Internal Medicine Cardiovascular Disease
DX: M48.56XD Collapsed vertebra, not elsewhere classified, lumbar region, subsequent encounter for fracture with routine healing (principal); G89.29 Other chronic pain; I50.9 Heart failure, unspecified; R53.83 Other fatigue
CPT/HCPCS: 96372; G0463; J1885

== ENCOUNTER → 2021-01-09 | Outpatient (CLI) | payer MEDICARE, OTHER ==
[2021-01-09 14:24] VITALS: BP 152/51
[2021-01-09 14:39] VITALS: BP 156/87
== END | disposition home or self-care (01) ==
LOC: CHF HDHVI 14:29
PROVIDERS: ATTEND Internal Medicine Cardiovascular Disease
DX: M48.56XD Collapsed vertebra, not elsewhere classified, lumbar region, subsequent encounter for fracture with routine healing (principal); G89.29 Other chronic pain; I50.9 Heart failure, unspecified; R53.83 Other fatigue
CPT/HCPCS: 96372; G0463; J1885

== ENCOUNTER → 2021-01-16 | Outpatient (CLI) | payer MEDICARE, OTHER ==
[~2021-01-16] VITALS: Ht 30.5 cm; Wt 0.5 kg
[2021-01-16 14:00] VITALS: BP 160/86
[2021-01-16 14:12] VITALS: BP 167/90
== END | disposition home or self-care (01) ==
LOC: CHF HDHVI 14:02
PROVIDERS: ATTEND Internal Medicine Cardiovascular Disease
DX: M48.56XD Collapsed vertebra, not elsewhere classified, lumbar region, subsequent encounter for fracture with routine healing (principal); G89.29 Other chronic pain; I50.9 Heart failure, unspecified; R53.83 Other fatigue
CPT/HCPCS: 96372; G0463; J1885

== ENCOUNTER → 2021-01-23 | Outpatient (CLI) | payer MEDICARE, OTHER ==
[2021-01-23 13:07] VITALS: BP 133/86
[2021-01-23 13:17] VITALS: BP 145/92
== END | disposition home or self-care (01) ==
LOC: CHF HDHVI 12:29
PROVIDERS: ATTEND Internal Medicine Cardiovascular Disease
DX: M48.56XD Collapsed vertebra, not elsewhere classified, lumbar region, subsequent encounter for fracture with routine healing (principal); G89.29 Other chronic pain; I50.9 Heart failure, unspecified; R53.83 Other fatigue
CPT/HCPCS: 96372; G0463; J1885

== ENCOUNTER → 2021-01-30 | Outpatient (CLI) | payer MEDICARE, OTHER ==
[~2021-01-30] VITALS: Ht 30.5 cm; Wt 0.5 kg
[2021-01-30 14:20] VITALS: BP 138/82
[2021-01-30 14:30] VITALS: BP 125/80
== END | disposition home or self-care (01) ==
LOC: CHF HDHVI 14:19
PROVIDERS: ATTEND Internal Medicine Cardiovascular Disease
DX: M48.56XD Collapsed vertebra, not elsewhere classified, lumbar region, subsequent encounter for fracture with routine healing (principal); G89.29 Other chronic pain; I50.9 Heart failure, unspecified; R53.83 Other fatigue
CPT/HCPCS: 96372; G0463; J1885

== ENCOUNTER → 2021-02-05 | Outpatient (CLI) | payer MEDICARE, OTHER ==
[2021-02-05 14:17] VITALS: BP 137/84
[2021-02-05 14:26] VITALS: BP 127/78
== END | disposition home or self-care (01) ==
LOC: CHF HDHVI 14:13
PROVIDERS: ATTEND Internal Medicine Cardiovascular Disease
DX: M48.56XD Collapsed vertebra, not elsewhere classified, lumbar region, subsequent encounter for fracture with routine healing (principal); G89.29 Other chronic pain; I50.9 Heart failure, unspecified; R53.83 Other fatigue
CPT/HCPCS: 96372; G0463; J1885

== ENCOUNTER → 2021-03-27 | Outpatient (CLI) | payer MEDICARE, OTHER ==
[2021-03-27 14:49] VITALS: BP 150/76
[2021-03-27 15:08] VITALS: BP 146/78
== END | disposition home or self-care (01) ==
LOC: CHF HDHVI 14:45
PROVIDERS: ATTEND Internal Medicine Cardiovascular Disease
DX: M48.56XD Collapsed vertebra, not elsewhere classified, lumbar region, subsequent encounter for fracture with routine healing (principal); G89.29 Other chronic pain; I50.9 Heart failure, unspecified; R53.83 Other fatigue
CPT/HCPCS: 96372; G0463; J1885

== ENCOUNTER → 2021-05-21 | Outpatient (CLI) | payer MEDICARE, OTHER ==
[2021-05-21 11:39] VITALS: BP 155/83
[2021-05-21 11:48] VITALS: BP 145/82
== END | disposition home or self-care (01) ==
LOC: CHF HDHVI 11:36
PROVIDERS: ATTEND Internal Medicine Cardiovascular Disease
DX: M48.56XD Collapsed vertebra, not elsewhere classified, lumbar region, subsequent encounter for fracture with routine healing (principal); G89.29 Other chronic pain; I50.9 Heart failure, unspecified; R53.83 Other fatigue
CPT/HCPCS: 96372; G0463; J1885

== ENCOUNTER → 2021-05-27 | Outpatient (CLI) | payer MEDICARE, OTHER ==
[2021-05-27 14:02] VITALS: BP 150/91
[2021-05-27 14:16] VITALS: BP 158/83
== END | disposition home or self-care (01) ==
LOC: CHF HDHVI 14:03
PROVIDERS: ATTEND Internal Medicine Cardiovascular Disease
DX: M48.56XD Collapsed vertebra, not elsewhere classified, lumbar region, subsequent encounter for fracture with routine healing (principal); G89.29 Other chronic pain; I50.9 Heart failure, unspecified; R53.83 Other fatigue
CPT/HCPCS: 96372; G0463; J1885

== ENCOUNTER → 2021-06-05 | Outpatient (CLI) | payer MEDICARE, OTHER ==
[2021-06-05 14:10] VITALS: BP 148/73
[2021-06-05 14:25] VITALS: BP 157/77
== END | disposition home or self-care (01) ==
LOC: CHF HDHVI 14:09
PROVIDERS: ATTEND Internal Medicine Cardiovascular Disease
DX: G89.29 Other chronic pain (principal); M48.56XD Collapsed vertebra, not elsewhere classified, lumbar region, subsequent encounter for fracture with routine healing; I50.9 Heart failure, unspecified; R53.83 Other fatigue
CPT/HCPCS: 96372; G0463; J1885

== ENCOUNTER → 2021-06-09 | Outpatient (CLI) | payer MEDICARE, OTHER ==
[~2021-06-09] MED LIST changes: -KETOROLAC TROMETH 60MG/2ML VIAL IM ONE; -KETOROLAC TROMETH 60MG/2ML VIAL ONE
== END | disposition home or self-care (01) ==
LOC: Rad HDHVI 16:19
PROVIDERS: ATTEND Internal Medicine Cardiovascular Disease
DX: M16.12 Unilateral primary osteoarthritis, left hip (principal); M25.452 Effusion, left hip; M25.752 Osteophyte, left hip; M25.852 Other specified joint disorders, left hip
CPT/HCPCS: 73700

== ENCOUNTER → 2021-06-12 | Outpatient (CLI) | payer MEDICARE, OTHER ==
[~2021-06-12] MED LIST changes: +KETOROLAC TROMETH 60MG/2ML VIAL IM ONE; +KETOROLAC TROMETH 60MG/2ML VIAL ONE
[2021-06-12 14:00] VITALS: BP 151/92
[2021-06-12 14:28] VITALS: BP 163/81
== END | disposition home or self-care (01) ==
LOC: CHF HDHVI 14:06
PROVIDERS: ATTEND Internal Medicine Cardiovascular Disease
DX: M54.59 Other low back pain (principal); G89.29 Other chronic pain; I50.9 Heart failure, unspecified
CPT/HCPCS: 96372; G0463; J1885

== ENCOUNTER → 2021-07-04 | Outpatient (CLI) | payer MEDICARE, OTHER ==
[2021-07-04 10:42] VITALS: BP 149/86
[2021-07-04 11:00] VITALS: BP 143/96
== END | disposition home or self-care (01) ==
LOC: CHF HDHVI 10:44
PROVIDERS: ATTEND Internal Medicine Cardiovascular Disease
DX: M54.59 Other low back pain (principal); G89.29 Other chronic pain; I50.9 Heart failure, unspecified; M19.90 Unspecified osteoarthritis, unspecified site
CPT/HCPCS: 96372; G0463; J1885

== ENCOUNTER → 2021-07-17 | Outpatient (CLI) | payer MEDICARE, OTHER ==
[2021-07-17 14:22] VITALS: BP 142/87
[2021-07-17 14:33] VITALS: BP 148/85
== END | disposition home or self-care (01) ==
LOC: CHF HDHVI 14:18
PROVIDERS: ATTEND Internal Medicine Cardiovascular Disease
DX: M48.56XD Collapsed vertebra, not elsewhere classified, lumbar region, subsequent encounter for fracture with routine healing (principal); G89.29 Other chronic pain; I50.9 Heart failure, unspecified; M16.12 Unilateral primary osteoarthritis, left hip; R53.83 Other fatigue
CPT/HCPCS: 96372; G0463; J1885

== ENCOUNTER → 2021-07-24 | Outpatient (CLI) | payer MEDICARE, OTHER ==
[2021-07-24 14:06] VITALS: BP 140/64
[2021-07-24 14:28] VITALS: BP 133/80
== END | disposition home or self-care (01) ==
LOC: CHF HDHVI 14:15
PROVIDERS: ATTEND Internal Medicine Cardiovascular Disease
DX: M48.56XD Collapsed vertebra, not elsewhere classified, lumbar region, subsequent encounter for fracture with routine healing (principal); G89.29 Other chronic pain; I50.9 Heart failure, unspecified; M16.12 Unilateral primary osteoarthritis, left hip; R53.83 Other fatigue
CPT/HCPCS: 96372; G0463; J1885

== ENCOUNTER → 2021-07-30 | Outpatient (CLI) | payer MEDICARE, OTHER ==
[~2021-07-30] VITALS: Ht 30.5 cm; Wt 0.5 kg
[2021-07-30 14:07] VITALS: BP 133/83
[2021-07-30 14:23] VITALS: BP 135/69
== END | disposition home or self-care (01) ==
LOC: CHF HDHVI 14:05
PROVIDERS: ATTEND Internal Medicine Cardiovascular Disease
DX: M48.56XD Collapsed vertebra, not elsewhere classified, lumbar region, subsequent encounter for fracture with routine healing (principal); G89.29 Other chronic pain; I50.9 Heart failure, unspecified; M16.12 Unilateral primary osteoarthritis, left hip; R53.83 Other fatigue
CPT/HCPCS: 96372; G0463; J1885

== ENCOUNTER → 2021-08-15 | Outpatient (CLI) | payer MEDICARE, OTHER ==
[~2021-08-15] MED LIST changes: +CEPH-509 PO; +CLIN300C8 PO; -KETOROLAC TROMETH 60MG/2ML VIAL IM ONE; -KETOROLAC TROMETH 60MG/2ML VIAL ONE
== END | disposition home or self-care (01) ==
LOC: Rad HDHVI 14:03
PROVIDERS: ATTEND Internal Medicine Cardiovascular Disease
DX: S52.021A Displaced fracture of olecranon process without intraarticular extension of right ulna, initial encounter for closed fracture (principal); M25.421 Effusion, right elbow; M79.89 Other specified soft tissue disorders; X58.XXXA Exposure to other specified factors, initial encounter; Y93.89 Activity, other specified; Y92.89 Other specified places as the place of occurrence of the external cause; Y99.8 Other external cause status
CPT/HCPCS: 73080; 73090

== ENCOUNTER 2021-08-18 13:17 | Emergency (ER) | payer MEDICARE, OTHER ==
[~2021-08-18] VITALS: Ht 162.6 cm; Wt 51.7 kg
[~2021-08-18 13:17] MED LIST changes: -CEPH-509 PO; -CLIN300C8 PO
[2021-08-18 14:44] LABS: Basophils # (auto) 0 10 ^3/uL (0-0.2); Basophils % (auto) 0.7 % (0.0-2.0); Eosinophils # (auto) 0 10 ^3/uL (0-0.8); Eosinophils % (auto) 0.1 % (0.0-7.0); Hematocrit 38.1 % (36.0-46.0); Lymphocytes # (auto) 0.5 10 ^3/uL (0.4-5.4); Lymphocytes % (auto) 9.7 % (10.0-50.0); Mean Corpuscular Hemoglobin 32.4 pg (28.0-32.0); Mean Corpuscular Hgb Conc. 34.2 g/dL (32.0-36.0); Mean Corpuscular Volume 94.7 fL (80.0-100.0); Monocytes # (auto) 0.4 10 ^3/uL (0-1.3); Monocytes % (auto) 7.5 % (0.0-12.0); Neutrophils # (auto) 4.2 10 ^3/uL (1.6-8.6); Red Blood Cells 4.02 10^6/uL (4.0-5.20); Red Cell Distribution Width 13.7 % (11.8-14.3); White Blood Cell 5.1 10^3/uL (4.4-10.8)
[2021-08-18 15:02] LABS: INR 0.97 (0.9-1.15); Partial Thromboplastin Time 27.6 sec (23.6-33.0)
[2021-08-18 15:04] LABS: Albumin 3.6 g/dL (3.4-5.0); Calcium 8.2 mg/dL (8.5-10.1); Potassium 3.5 mmol/L (3.5-5.1)
[2021-08-18 15:13] LABS: Urine Amorphous Crystal FEW /hpf (None Seen); Urine Bacteria NONE SEEN /hpf (None Seen); Urine Blood Negative /uL (Negative); Urine Mucus FEW (None Seen); Urine Specific Gravity 1.005 (1.001-1.035); Urine WBC 1 /hpf (0 - 5)
[2021-08-18 15:14] LABS: BUN/Creatinine Ratio 12.5; Bilirubin, Total 0.4 mg/dL (0.2-1.0); Total Protein 6.8 g/dL (6.4-8.2)
[2021-08-18 15:15] VITALS: BP 176/74
[2021-08-18] MEDS ORDERED: CEPH-509 PO (16:33)
[2021-08-18] MEDS ORDERED: CLIN300C8 PO (16:33)
[2021-08-18] MEDS ORDERED: KETOROLAC TROMETH 30 MG/ML 1ML VIAL IV ONE (16:45)
[2021-08-18] MEDS ORDERED: HYDROcodone-ACET 10/325MG TAB PO ONE (17:45)
== END 2021-08-18 15:58 | disposition home or self-care (01) ==
LOC: EDBD 13:17 → ER 13:17
DX: S52.021A Displaced fracture of olecranon process without intraarticular extension of right ulna, initial encounter for closed fracture (principal); L03.113 Cellulitis of right upper limb; I10 Essential (primary) hypertension; R06.02 Shortness of breath; Z90.49 Acquired absence of other specified parts of digestive tract; Z79.899 Other long term (current) drug therapy; Z88.1 Allergy status to other antibiotic agents; Z88.2 Allergy status to sulfonamides; Z88.8 Allergy status to other drugs, medicaments and biological substances; W18.39XA Other fall on same level, initial encounter; Y93.89 Activity, other specified; Y92.89 Other specified places as the place of occurrence of the external cause; Y99.8 Other external cause status
CPT/HCPCS: 36415; 71045; 73070; 80053; 81001; 84484; 85025; 85610; 85730; 93926; 96374; 99285; J1885

== ENCOUNTER → 2023-06-14 | Outpatient (CLI) | payer MEDICARE, OTHER ==
[~2023-06-14] MED LIST changes: +CEPH-509 PO; +CLIN300C70 PO; -LISI20TA28 PO; +LISI20TA56 PO
== END | disposition home or self-care (01) ==
LOC: Rad HDHVI 14:10
PROVIDERS: ATTEND Internal Medicine Cardiovascular Disease
DX: R60.0 Localized edema (principal)
CPT/HCPCS: 93970

== ENCOUNTER → 2024-10-18 | Outpatient (CLI) | payer MEDICARE ==
[~2024-10-18] MED LIST changes: +AZAT50TA35 PO; -AZAT50TA6 PO; +CLIN1CAP70 PO; -CLIN300C70 PO; -PROBCAP4 OR; +[UNRECOGNIZED DRUG - CODE] OR
[2024-10-18] MEDS: GENTAMICIN SULFATE ONE (14:43)
[2024-10-18 14:46] VITALS: BP 153/85; PULSE 74; RESP 18; O2SAT 95
[2024-10-18] MEDS: GENTAMICIN SULFATE 240 MG in D5W 5% 100 ML IV ONE (14:50)
[2024-10-18 16:10] VITALS: BP 159/87; PULSE 69; RESP 18; O2SAT 95
--- NOTE | 2024-10-23 13:53 | DVHSR ---
APPROVED REPORT EXAM: Two-dimensional and M-mode echocardiogram with Doppler and color Doppler. DIMENSIONS LVDd4.0 (3.8-5.7cm)LA (2D)4.2 (1.9-4.0cm)Aortic Root3.4 (2.0-3.7cm) LVDs2.3 (2.5-4.0cm)LA (MM) (1.9-4.0cm)Aortic Cusp Exc1.5 (1.5-2.0cm) EF (%) 65.0 (55-70%)Rt. Atrium3.8 (1.9-4.0cm)Asc. Aorta cm IVSd1.3 (0.7-1.1cm)RV (D) (1.8-2.4cm) PWd1.2 (0.7-1.1cm) Mitral Valve MitralMitral Stenosis E wave0.93m/sMV Mean GR.mmHg A wave1.03m/sMV Peak GR.mmHg E/A ratio0.92D MVAcm2 DECEL [id number] 1/2 Timems Aortic Valve Aortic ValveAortic Stenosis V10.95m/Malika Mean GR.1mmHg V20.97m/Malika Peak GR.4mmHg LVOT Diameter2.2 (1.8-2.4cm)Doppler AVA3.72cm2 Pulmonic Valve V20.93m/s LEFT VENTRICLE The left ventricle is normal size. There is mild concentric left ventricular hypertrophy. The left ventricle is normal in structure and function. The Ejection Fraction is within normal limits. RIGHT VENTRICLE The right ventricle is normal size. ATRIA The left atrium is enlarged. The right atrium size is normal. The interatrial septum is intact with no evidence for an atrial septal defect. MITRAL VALVE The mitral valve is normal in structure. Mitral annular calcification is moderate. Mitral regurgitation is trace. PULMONIC VALVE The pulmonic valve is not well visualized. There is trace pulmonic valvular regurgitation. TRICUSPID VALVE The tricuspid valve is grossly normal. AORTIC VALVE The aortic valve opens well. The aortic valve is mildly sclerotic. No aortic regurgitation is present. GREAT VESSELS The aortic root is normal size. PERICARDIAL EFFUSION There is no pericardial effusion. Other Information Technically limited study due to patient position, patient scanned in wheelchair. Conclusion EF >55% MOD POSTERIOR MV CALCIFICATION/ MAC LVH LAE
== END | disposition home or self-care (01) ==
LOC: Rad HDHVI 12:38
PROVIDERS: ATTEND Internal Medicine Cardiovascular Disease
DX: N39.0 Urinary tract infection, site not specified (principal); E78.5 Hyperlipidemia, unspecified; I11.0 Hypertensive heart disease with heart failure; I50.9 Heart failure, unspecified
CPT/HCPCS: 93306; 96365; G0463; J1580; J7060